=== PATIENT | female | born 1955 | race Caucasian/White ===

== ENCOUNTER 2017-04-17 14:10 | Outpatient (CLI) | payer MEDICAID ==
--- NOTE | 2017-04-18 13:17 | XRAY Report ---
DATE OF SERVICE: 04/17/2017 EXAM: BILATERAL FOUR VIEW KNEES: 04/17/2017 CLINICAL INDICATION: Pain. COMPARISON: Right knee of 04/01/2016. FINDINGS: AP, lateral, and bilateral oblique views of both knees were obtained. There is mild bilat eral osteoarthritis. There is no evidence of acute fracture or dislocation. No effusion is present on eit her side. IMPRESSION: MILD BILATERAL OSTEOARTHRITIS. NO EVIDENCE OF FRACTURE. TD: 04/18/2017 10:49
== END 2017-04-17 14:11 | disposition home or self-care (01) ==
LOC: DI.S 14:10
PROVIDERS: ATTEND Nurse Practitioner Family
DX: M17.0 Bilateral primary osteoarthritis of knee (principal)

== ENCOUNTER 2019-05-09 19:15 | Emergency (ER) | payer MEDICAID ==
[2019-05-09 19:21] VITALS: BP 157/93
[2019-05-09] MEDS ORDERED: KETOROLAC 30 MG/ML VIAL IVP STA (19:51)
[2019-05-09] MEDS ORDERED: CYCLOBENZAPRINE 10 MG TABLET PO STA (19:51)
--- NOTE | 2019-05-09 19:51 | ED Physician Documentation ---
History of Present Illness - Stated complaint Stated Complaint: LT SHOULDER PX - Chief complaint Chief Complaint: Ext Problem - Additonal information Additional information: This is a 63-year-old female with a history of a seizure. Patient states that initial fall in December, she had a little bit of achiness in her shoulder since that time. She was moving furniture 2 weeks ago and she thinks this exacerbated her shoulder pain. Over the last 4 days pain is gotten quite a bit worse and she is having discomfort on the anterior and posterior aspects of the shoulder with movement. She denies weakness or numbness or tingling. She de nies any direct trauma to the joint since December. She has been taking ibuprofen without relief. She can find a specific spot that is very tender to palpation. No fever. No chest pain, no shortness of breath. Review of Systems Constitutional: denies: Fever Cardiac: denies: Chest pain / pressure Skin: denies: Rash Musculoskeletal: reports: Joint pain PD PAST MEDICAL HISTORY - Past Medical History Neuro: Seizure disorder - Past Surgical History Past Surgical History: Yes Ortho: Other - Present Medications Home Medications: Ambulatory Orders Medication Instructions Recorded Confirmed Citalopram [CeleXA] 10 mg DAILY 04/01/16 04/01/16 Meloxicam [Mobic] 7.5 mg PO DAILY #20 tablet 04/01/16 lamoTRIgine [Lamictal Xr] 0 mg PO 04/01/16 methocarbamoL [Robaxin] 1,000 mg PO Q8HR #30 tablet 04/01/16 Cyclobenzaprine [Flexeril] 10 mg PO TID PRN #20 tablet 05/09/19 Lidocaine Patch 5% [Lidoderm Patch] 1 each TOP DAILY PRN #7 patch 05/09/19 - Allergies Allergies/Adverse Reactions: Allergies Allergy/AdvReac Type Severity Reaction Status Date / Time topiramate Allergy Hallucinati Verified 05/09/19 19:18 ons - Social History Does the pt smoke?: No Smoking Status: Never smoker Does the pt drink ETOH?: No Does the pt have substance abuse?: No PD ED PE NORMAL - Vitals Vital signs reviewed: Yes - General General: Alert and oriented X 3, No acute distress - HEENT HEENT: PERRL - Cardiac Cardiac: RRR - Respiratory Respiratory: No respiratory distress - Abdomen Abdomen: Soft - Derm Derm: Warm and dry - Extremities Extremities: Other (Shoulders are symmetric in appearance. The left shoulder has no erythema or warmth. There is some tenderness over the anterior deltoid as well as the posterior deltoid. Patient is only able to abduct her arm about 25 degrees, and flex forward about 45 degrees due to pain. Her range of motion of her elbow and wrist are normal 5 with hand squeeze finger abduction wrist extension. Sensation is intact light touch over the entire extremity) - Neuro Neuro: Alert and oriented X 3 - Psych Psych: Normal mood, Normal affect Results - Vitals Vitals: Oxygen O2 Source Room air - Rads (name of study) XR shoulder Radiology: Other (Calcific tendinitis, no fracture or dislocation) PD MEDICAL DECISION MAKING - ED course ED course: Pt presents with clearly musculoskeletal shoulder pain. She has no chest pain or shortness of breath, she has reproducible shoulder pain/tenderness, and limited ROM of the shoulder. XR is negative and there was no recent mechanism that would make occult fracture likely. Given her pain and limited ROM in the setting of past shoulder injury, this is concerning for adhesive capsulitis, though strain or rotator cuff injury is also possible. She feels a bit better after toradol. I discussed care, pain control, gentle ROM exercises, and ortho/sports med follow up. I also reviewed return precautions and patient was discharged in the care of family. Departure - Departure Disposition: 01 Home, Self Care Clinical Impression: Shoulder pain Qualifiers: Chronicity: acute Laterality: left Qualified Code(s): M25.512 - Pain in left shoulder Condition: Good Instructions: ED Capsulitis Adhesive Shoulder Follow-Up: Everardo Lance MD [Provider Admit Priv/Credential] - As Needed Aidee Farley ARNP [Primary Care Provider] - Within 1 week Prescriptions: Cyclobenzaprine [Flexeril] 10 mg PO TID PRN #20 tablet PRN Reason: Spasms Lidocaine Patch 5% [Lidoderm Patch] 1 each TOP DAILY PRN #7 patch PRN Reason: Pain Comments: You were seen today for shoulder pain. Your x-ray does not show a fracture but it does show some calcification of the tendons around the shoulders. You may have a strain or you may have adhesive capsulitis or frozen shoulder. You may take Tylenol (650mg twice daily) and ibuprofen (600mg every 6 hours as needed for pain),and try the Flexeril and lidocaine for pain as well. Continue to perform gentle range of motion exercises as we talked about. Follow-up with your primary care provider, and Dr. Lance. If you are having worsening symptoms, particular symptoms of infection such as fever or a lot of redness around the shoulder, return to the emergency department Discharge Date/Time: 05/09/19 21:30
[2019-05-09] MEDS ORDERED: KETOROLAC 30 MG/ML VIAL IM STA (20:10)
--- NOTE | 2019-05-09 20:28 | XRAY Report ---
Reason: pain/injury Procedure Date: 05/09/2019 Accession Number: [id number] / [id number] Procedure: XR - Shoulder 3 View LT CPT Code: Final Report FULL RESULT: EXAM: LEFT SHOULDER RADIOGRAPHY EXAM DATE: 05/09/2019 07:54 PM. CLINICAL HISTORY: Left shoulder pain since fall. COMPARISON: None. TECHNIQUE: 3 views. FINDINGS: Bones: Normal. No fracture or bone lesion. Joints: The glenohumeral and acromioclavicular joints are normal. Soft tissues: The visualized hemithorax is unremarkable. Moderate soft tissue calcification. IMPRESSION: 1. No fracture or dislocation. 2. Moderate calcific tendinitis. RADIA
== END 2019-05-09 21:30 | disposition home or self-care (01) ==
LOC: ED 19:15
DX: M75.32 Calcific tendinitis of left shoulder (principal); G40.909 Epilepsy, unspecified, not intractable, without status epilepticus
CPT/HCPCS: 73030; 96372; 99283; 99284; A9270

== ENCOUNTER 2019-05-28 11:16 | Outpatient (CLI) | payer MEDICAID ==
--- NOTE | 2019-05-31 11:45 | Mammography Report ---
Reason: ROUTINE MAMMO Procedure Date: 05/28/2019 Accession Number: [id number] / [id number] Procedure: [facility] - Screening Mammo w/Mark CPT Code: Final Report FULL RESULT: EXAM: Screening Mammo w/Mark DATE: 05/28/2019 11:42 AM CLINICAL HISTORY: New baseline exam. Frozen left shoulder. TECHNIQUE: (B) - Bilateral CC and MLO views were obtained. COMPARISON: None PARENCHYMAL PATTERN: (A) - The breasts demonstrate scattered fibroglandular densities bilaterally. FINDINGS: There are no suspicious masses, calcifications, skin thickening, or areas of distortion. IMPRESSION: Negative examination. BI-RADS category 1. RECOMMENDATION: (ANNUAL) - Recommend routine annual screening mammography. BI-RADS CATEGORY: (1) - Negative. STANDARD QUALIFYING STATEMENTS: 1. This examination was not reviewed with the aid of Computer-Aided Detection (CAD). 2. A negative or benign imaging report should not preclude biopsy if clinically suspicious findings are present. 3. Dense breasts may obscure an underlying neoplasm. 4. This examination was reviewed with the aid of 3D breast imaging (tomosynthesis).
== END 2019-05-28 11:17 | disposition home or self-care (01) ==
LOC: DI 11:16
PROVIDERS: ATTEND Registered Nurse
DX: Z12.31 Encounter for screening mammogram for malignant neoplasm of breast (principal)
CPT/HCPCS: 77063; 77067

== ENCOUNTER 2019-11-13 10:07 | Outpatient (CLI) | payer MEDICAID ==
[2019-11-13 11:25] LABS: ALBUMIN 4.7 g/dL (3.2-5.5); ALBUMIN/GLOBULIN RATIO 1.6 (1.0-2.2); ALKALINE PHOSPHATASE 48 IU/L (42-121); ALT ALANINE AMINOTRANSFERASE 21 IU/L (10-60); AST ASPARTATE AMINOTRANSFERASE 24 IU/L (10-42); BILIRUBIN,TOTAL 0.6 mg/dL (0.2-1.0); BUN - BLOOD UREA NITROGEN 19 mg/dL (6-20); CALCIUM 9.6 mg/dL (8.5-10.3); CARBON DIOXIDE - CO2 23 mmol/L (21-32); CHLORIDE 105 mmol/L (101-111); CHOL/HDL RATIO 3.7 (<4.4); CHOLESTEROL 214 mg/dL; CREATININE 0.7 mg/dL (0.4-1.0); GLUCOSE 113 mg/dL (70-100); HDL CHOLESTEROL 58 mg/dL; LDL CHOLESTEROL,CALCULATED 133 mg/dL; LDL/HDL RATIO 2.3 (<4.4); SODIUM 139 mmol/L (135-145); TOTAL PROTEIN 7.6 g/dL (6.7-8.2); VLDL CHOLESTEROL 23 mg/dL
[2019-11-13 11:40] LABS: BASOPHILS # (AUTO) 0.1 10^3/uL (0.0-0.1); BASOPHILS % (AUTO) 0.9 %; EOSINOPHILS # (AUTO) 0.6 10^3/uL (0.0-0.7); EOSINOPHILS % (AUTO) 8.2 %; HGB - HEMOGLOBIN 13.3 g/dL (12.0-16.0); LYMPHOCYTES # (AUTO) 2.6 10^3/uL (1.5-3.5); LYMPHOCYTES % (AUTO) 36.9 %; MEAN CORPUSCULAR HEMOGLOBIN 31.4 pg (27.0-31.0); MEAN CORPUSCULAR HGB CONC 34.7 g/dL (32.0-36.0); MEAN CORPUSCULAR VOLUME 90.5 fL (81.0-99.0); MEAN PLATELET VOLUME 9.2 fL (7.9-10.8); MONOCYTES # (AUTO) 0.6 10^3/uL (0.0-1.0); MONOCYTES % (AUTO) 8.8 %; NEUTROPHILS # (AUTO) 3.1 10^3/uL (1.5-6.6); NEUTROPHILS % (AUTO) 44.9 %; PLT - PLATELET COUNT 205 10^3/uL (130-450); RED BLOOD COUNT 4.23 10^6/uL (4.20-5.40); RED CELL DISTRIBUTION WIDTH 12.8 % (12.0-15.0)
[2019-11-13 12:40] LABS: FREE T4 (FREE THYROXINE) 0.66 ng/dL (0.58-1.64)
== END 2019-11-13 10:08 | disposition home or self-care (01) ==
LOC: LAB 10:07
PROVIDERS: ATTEND Registered Nurse
DX: R03.0 Elevated blood-pressure reading, without diagnosis of hypertension (principal); K74.60 Unspecified cirrhosis of liver; F45.9 Somatoform disorder, unspecified; Z13.29 Encounter for screening for other suspected endocrine disorder
CPT/HCPCS: 36415; 80053; 80061; 80175; 83721; 84439; 84443; 85025

== ENCOUNTER 2019-12-14 14:28 | Outpatient (CLI) | payer MEDICAID ==
--- NOTE | 2019-12-14 15:08 | XRAY Report ---
PROCEDURE: Foot 3 View RT INDICATIONS: PAIN IN UNSPECIFIED FOOT TECHNIQUE: 3 views of the foot were acquired. COMPARISON: None FINDINGS: Bones: No fractures or dislocations. No suspicious bony lesions. Calcaneal spurring. Soft tissues: No tibiotalar joint effusion. Achilles tendon appears normal. IMPRESSION: 1. Calcaneal spurring. 2. No acute fracture. No osseous lesion. If symptoms and/or clinical suspicion for pathology continue , further assessment with repeat plain films, or advanced imaging (e.g., CT, MRI, or bone scan) is re commended for further assessment. Reviewed by: Azul Corcoran MD on 12/14/2019 3:07 PM PDT Approved by: Azul Corcoran MD on 12/14/2019 3:07 PM PDT Station ID: [id number]
== END 2019-12-14 14:29 | disposition home or self-care (01) ==
LOC: DI 14:28
PROVIDERS: ATTEND Physician Assistant
DX: M77.31 Calcaneal spur, right foot (principal)

== ENCOUNTER 2020-02-16 15:21 | Outpatient (CLI) | payer MEDICAID ==
[2020-02-16 15:38] LABS: BASOPHILS # (AUTO) 0.1 10^3/uL (0.0-0.1); BASOPHILS % (AUTO) 0.9 %; EOSINOPHILS # (AUTO) 0.4 10^3/uL (0.0-0.7); EOSINOPHILS % (AUTO) 5.3 %; HGB - HEMOGLOBIN 13.6 g/dL (12.0-16.0); LYMPHOCYTES # (AUTO) 2.5 10^3/uL (1.5-3.5); MEAN CORPUSCULAR HEMOGLOBIN 30.8 pg (27.0-31.0); MEAN CORPUSCULAR VOLUME 90.7 fL (81.0-99.0); MEAN PLATELET VOLUME 8.9 fL (7.9-10.8); MONOCYTES # (AUTO) 0.5 10^3/uL (0.0-1.0); NEUTROPHILS # (AUTO) 3.2 10^3/uL (1.5-6.6); NEUTROPHILS % (AUTO) 47.6 %; PLT - PLATELET COUNT 218 10^3/uL (130-450); RED BLOOD COUNT 4.41 10^6/uL (4.20-5.40); RED CELL DISTRIBUTION WIDTH 12.4 % (12.0-15.0); WHITE BLOOD COUNT 6.6 x10^3/uL (4.8-10.8)
[2020-02-16 15:43] LABS: INR 1.1 (0.8-1.2); PT - PROTHROMBIN TIME 12.7 secs (9.9-12.6)
[2020-02-16 15:49] LABS: ALBUMIN 4.5 g/dL (3.2-5.5); ALBUMIN/GLOBULIN RATIO 1.4 (1.0-2.2); BILIRUBIN,TOTAL 0.6 mg/dL (0.2-1.0); CREATININE 0.8 mg/dL (0.4-1.0); TOTAL PROTEIN 7.7 g/dL (6.7-8.2)
[2020-02-16 15:50] LABS: PARTIAL THROMBOPLASTIN TIME 28.7 secs (24.9-33.3)
== END 2020-02-16 15:22 | disposition home or self-care (01) ==
LOC: LAB 15:21
PROVIDERS: ATTEND Physician Assistant
DX: Z00.00 Encounter for general adult medical examination without abnormal findings (principal); R53.83 Other fatigue; K74.60 Unspecified cirrhosis of liver; R94.6 Abnormal results of thyroid function studies
CPT/HCPCS: 36415; 80053; 84443; 85025; 85610; 85730

== ENCOUNTER 2021-01-15 16:20 | Outpatient (CLI) | payer MEDICAID | END 2021-01-15 16:21 | disposition home or self-care (01) | LOC: LAB.N 16:20 | PROVIDERS: ATTEND Physician Assistant | DX: Z79.899 Other long term (current) drug therapy (principal) | CPT/HCPCS: 80175 ==

== ENCOUNTER 2022-05-03 13:59 | Outpatient (CLI) | payer MEDICARE, MEDICAID ==
[2022-05-03 19:31] LABS: BASOPHILS # (AUTO) 0.1 10^3/uL (0.0-0.1); EOSINOPHILS # (AUTO) 0.5 10^3/uL (0.0-0.7); EOSINOPHILS % (AUTO) 7.2 %; HCT - HEMATOCRIT 42.1 % (37.0-47.0); HGB - HEMOGLOBIN 13.5 g/dL (12.0-16.0); LYMPHOCYTES # (AUTO) 2.2 10^3/uL (1.5-3.5); LYMPHOCYTES % (AUTO) 32.3 %; MEAN CORPUSCULAR HEMOGLOBIN 30.5 pg (27.0-31.0); MEAN CORPUSCULAR HGB CONC 32.1 g/dL (32.0-36.0); MEAN CORPUSCULAR VOLUME 95.2 fL (81.0-99.0); MONOCYTES # (AUTO) 0.6 10^3/uL (0.0-1.0); MONOCYTES % (AUTO) 8.4 %; NEUTROPHILS # (AUTO) 3.5 10^3/uL (1.5-6.6); RED BLOOD COUNT 4.42 10^6/uL (4.20-5.40); RED CELL DISTRIBUTION WIDTH 12.7 % (12.0-15.0); WHITE BLOOD COUNT 6.8 x10^3/uL (4.8-10.8)
[2022-05-03 19:49] LABS: ALBUMIN 4.2 g/dL (3.2-5.5); ALBUMIN/GLOBULIN RATIO 1.2 (1.0-2.2); ALKALINE PHOSPHATASE 48 IU/L (42-121); ALT ALANINE AMINOTRANSFERASE 35 IU/L (10-60); AST ASPARTATE AMINOTRANSFERASE 36 IU/L (10-42); BILIRUBIN,TOTAL 0.4 mg/dL (0.2-1.0); BUN - BLOOD UREA NITROGEN 14 mg/dL (6-20); CALCIUM 9.6 mg/dL (8.5-10.3); CARBON DIOXIDE - CO2 25 mmol/L (21-32); CHLORIDE 105 mmol/L (101-111); CHOLESTEROL 243 mg/dL; CREATININE 0.8 mg/dL (0.4-1.0); GFR - MDRD 72 (>89); GLUCOSE 125 mg/dL (70-100); HDL CHOLESTEROL 61 mg/dL; LDL CHOLESTEROL,CALCULATED 157 mg/dL; LDL/HDL RATIO 2.6 (<4.4); POTASSIUM 4.5 mmol/L (3.5-5.0); SODIUM 138 mmol/L (135-145); TOTAL PROTEIN 7.6 g/dL (6.7-8.2); TRIGLYCERIDES 126 mg/dL; VLDL CHOLESTEROL 25 mg/dL
[2022-05-03 19:58] LABS: THYROID STIMULATING HORMONE 3.48 uIU/mL (0.34-5.60)
[2022-05-03 20:09] LABS: PLATELET ESTIMATE, MANUAL NORMAL (130-450,000) (NORMAL); PLATELET MORPHOLOGY PLATELET CLUMPING (NORMAL); SLIDE REVIEW? Indicated
== END 2022-05-03 14:00 | disposition home or self-care (01) ==
LOC: LAB.S 13:59
PROVIDERS: ATTEND Registered Nurse
DX: Z79.899 Other long term (current) drug therapy (principal); Z13.29 Encounter for screening for other suspected endocrine disorder
CPT/HCPCS: 36415; 80053; 80061; 80175; 83721; 84443; 85025

== ENCOUNTER 2022-11-26 12:26 | Outpatient (CLI) | payer MEDICARE, MEDICAID ==
[2022-11-26 12:51] LABS: BASOPHILS # (AUTO) 0.1 10^3/uL (0.0-0.1); BASOPHILS % (AUTO) 0.8 %; EOSINOPHILS # (AUTO) 0.4 10^3/uL (0.0-0.7); EOSINOPHILS % (AUTO) 6.2 %; HCT - HEMATOCRIT 39.4 % (37.0-47.0); HGB - HEMOGLOBIN 13.5 g/dL (12.0-16.0); LYMPHOCYTES # (AUTO) 2.3 10^3/uL (1.5-3.5); LYMPHOCYTES % (AUTO) 35.1 %; MEAN CORPUSCULAR HEMOGLOBIN 30.6 pg (27.0-31.0); MEAN CORPUSCULAR HGB CONC 34.3 g/dL (32.0-36.0); MEAN CORPUSCULAR VOLUME 89.3 fL (81.0-99.0); MEAN PLATELET VOLUME 9.2 fL (7.9-10.8); MONOCYTES # (AUTO) 0.5 10^3/uL (0.0-1.0); MONOCYTES % (AUTO) 7.2 %; NEUTROPHILS # (AUTO) 3.4 10^3/uL (1.5-6.6); NEUTROPHILS % (AUTO) 50.5 %; PLT - PLATELET COUNT 231 10^3/uL (130-450); RED BLOOD COUNT 4.41 10^6/uL (4.20-5.40); RED CELL DISTRIBUTION WIDTH 12.6 % (12.0-15.0); WHITE BLOOD COUNT 6.6 x10^3/uL (4.8-10.8)
[2022-11-26 13:08] LABS: ALBUMIN 4.6 g/dL (3.2-5.5); ALBUMIN/GLOBULIN RATIO 1.5 (1.0-2.2); ALKALINE PHOSPHATASE 50 IU/L (42-121); ALT ALANINE AMINOTRANSFERASE 31 IU/L (10-60); AST ASPARTATE AMINOTRANSFERASE 32 IU/L (10-42); BILIRUBIN,TOTAL 0.5 mg/dL (0.2-1.0); BUN - BLOOD UREA NITROGEN 16 mg/dL (6-20); CALCIUM 10.3 mg/dL (8.5-10.3); CARBON DIOXIDE - CO2 27 mmol/L (21-32); CHLORIDE 107 mmol/L (101-111); CHOL/HDL RATIO 3.7 (<4.4); CHOLESTEROL 238 mg/dL; CREATININE 0.8 mg/dL (0.6-1.3); GFR - MDRD 72 (>89); GLUCOSE 134 mg/dL (74-104); HDL CHOLESTEROL 64 mg/dL; LDL CHOLESTEROL,CALCULATED 147 mg/dL; LDL/HDL RATIO 2.3 (<4.4); POTASSIUM 4.3 mmol/L (3.5-4.5); SODIUM 138 mmol/L (135-145); TOTAL PROTEIN 7.7 g/dL (6.4-8.9); TRIGLYCERIDES 136 mg/dL (48-352); VLDL CHOLESTEROL 27 mg/dL
[2022-11-26 13:39] LABS: THYROID STIMULATING HORMONE 3.45 uIU/mL (0.34-5.60)
== END 2022-11-26 12:27 | disposition home or self-care (01) ==
LOC: LAB 12:26
PROVIDERS: ATTEND Registered Nurse
DX: Z79.899 Other long term (current) drug therapy (principal); Z13.29 Encounter for screening for other suspected endocrine disorder
CPT/HCPCS: 36415; 80053; 80061; 80175; 83721; 84443; 85025

== ENCOUNTER 2023-03-04 11:42 | Outpatient (CLI) | payer MEDICARE ==
[2023-03-04 12:14] LABS: CREATININE 0.9 mg/dL (0.6-1.3); POTASSIUM 4.5 mmol/L (3.5-4.5)
[2023-03-04 12:15] LABS: CREATININE,URINE 150.1 mg/dL; MICROALBUM/CREATININE RATIO,UR 7.3 ug/mg (<30.0); MICROALBUMIN,URINE 1.1 mg/dL
[2023-03-04 14:09] LABS: ESTIMATED AVERAGE GLUCOSE 120 mg/dL (70-100); HEMOGLOBIN A1c% 5.8 % (4.27-6.07)
== END 2023-03-04 11:43 | disposition home or self-care (01) ==
LOC: LAB 11:42
PROVIDERS: ATTEND Registered Nurse
DX: E11.9 Type 2 diabetes mellitus without complications (principal)
CPT/HCPCS: 36415; 80048; 82043; 82570; 83036

== ENCOUNTER 2023-03-11 15:27 | Outpatient (CLI) | payer MEDICARE ==
--- NOTE | 2023-03-11 19:10 | XRAY Report ---
PROCEDURE: Wrist 2 View LT INDICATIONS: WRIST PAIN,LEFT TECHNIQUE: 3 views of the wrist were acquired. COMPARISON: None. FINDINGS: Bones: No acute fractures or dislocations. No suspicious bony lesions. Degenerative changes of the radiocarpal joint. Degenerative changes of the first carpometacarpal joint and triscaphe joint. Chron ic appearing calcifications adjacent to the ulnar styloid process. Soft tissues: No suspicious soft tissue calcifications or masses. IMPRESSION: No acute bony abnormality. Degenerative changes of the left wrist involving the radiocarpal joint, tr iscaphe joint, and first carpometacarpal joint. If there is continued clinical concern for internal soft tissue derangement, consider further evalua tion with MRI. Reviewed by: Shalom Adam MD on 03/11/2023 7:09 PM [facility]UST Approved by: Shalom Adam MD on 03/11/2023 7:09 PM RUST Station ID: [id number]
== END 2023-03-11 15:28 | disposition home or self-care (01) ==
LOC: DI 15:27
PROVIDERS: ATTEND Registered Nurse
DX: M19.032 Primary osteoarthritis, left wrist (principal)

== ENCOUNTER 2023-09-09 13:18 | Outpatient (CLI) | payer MEDICARE ==
[2023-09-09 13:53] LABS: ALBUMIN 4.5 g/dL (3.2-5.5); ALBUMIN/GLOBULIN RATIO 1.4 (1.0-2.2); BILIRUBIN,TOTAL 0.5 mg/dL (0.2-1.0); CALCIUM 10.4 mg/dL (8.5-10.3); CREATININE 0.8 mg/dL (0.6-1.3); POTASSIUM 4.3 mmol/L (3.5-4.5); TOTAL PROTEIN 7.7 g/dL (6.4-8.9)
== END 2023-09-09 13:19 | disposition home or self-care (01) ==
LOC: LAB 13:18
PROVIDERS: ATTEND Registered Nurse
DX: Z13.228 Encounter for screening for other metabolic disorders (principal); Z13.220 Encounter for screening for lipoid disorders; Z13.29 Encounter for screening for other suspected endocrine disorder; Z13.0 Encounter for screening for diseases of the blood and blood-forming organs and certain disorders involving the immune mechanism
CPT/HCPCS: 36415; 80053; 80061; 83721; 84443; 85025